=== PATIENT | female | born 1980 | race Caucasian/White ===

== ENCOUNTER 2018-10-31 16:53 | Inpatient (IN) ==
[2018-10-31 18:30] LABS: Baso % (Auto) 0.1 % (0.0-2.0); Eos # (Auto) 0.1 th/mm3 (0.0-0.4); Eos % (Auto) 1.1 % (0.0-4.0); Hemoglobin 13.7 gm/dL (11.6-15.3); Lymph # (Auto) 1.4 th/mm3 (1.0-4.8); Lymph % (Auto) 17.6 % (9.0-44.0); Mean Corpuscular HGB Conc 34.3 % (32.0-36.0); Mean Corpuscular Hemoglobin 30.7 pg (27.0-34.0); Mean Corpuscular Volume 89.4 fL (80.0-100.0); Mean Platelet Volume 9.2 fL (7.0-11.0); Mono # (Auto) 0.4 th/mm3 (0.0-0.9); Mono % (Auto) 5.7 % (0.0-8.0); Neut # (Auto) 5.9 th/mm3 (1.8-7.7); Neut % (Auto) 75.5 % (16.0-70.0); Platelet Count 182 th/mm3 (150-450); Red Blood Count 4.47 mil/mm3 (4.00-5.30); Red Cell Distribution Width 13.6 % (11.6-17.2); White Blood Count 7.8 th/mm3 (4.0-11.0)
[2018-10-31] MEDS ORDERED: Penicillin G Potassium Inj 5,000,000 UNIT in Sodium Chloride 0.9% Inj 100 ML IV.SIG ONE (18:46)
[2018-10-31] MEDS ORDERED: Oxytocin 30 Units/500ml Premix 30 UNITS/500 ML BAG IV.SIG ONE (18:46)
[2018-10-31] MEDS ORDERED: Naloxone Inj 0.4 MG/ML Vial IV.PUSH PRN (18:46)
[2018-10-31] MEDS ORDERED: fentaNYL Citrate Inj 100 MCG/2 ML Ampul IV.PUSH PRN ×2 (18:46)
[2018-10-31] MEDS ORDERED: Sodium Chlor 0.9% Inj 500 ML IV.SIG PRN (18:46)
[2018-10-31] MEDS ORDERED: Sod Chloride 0.9% Inj 1,000 ML IV.CONT PRN (18:46)
[2018-10-31] MEDS ORDERED: Citric Acid/Sodium Citrate Liq 30 ML UDC PO SCH (19:00)
[2018-10-31] MEDS ORDERED: Sodium Chloride 0.9% 2 ML Flush PRN IV.FLUSH (19:06)
[2018-10-31] MEDS: Sodium Chloride 0.9% 2 ML Flush BID IV.FLUSH SCH (20:37)
[2018-10-31 20:39] LABS: Amorphous Sediment,Urine Rare /hpf; Bacteria,Urine Rare /hpf; Bilirubin,Urine Negative (Negative); Clarity,Urine Hazy (Clear); Color,Urine Yellow (Yellw/Straw); Glucose,Urine (UA) Negative (Negative); Leukocyte Esterase,Urine Negative (Negative); Mucus,Urine Few /lpf (Occasional); Nitrite,Urine Negative (Negative); Specific Gravity,Urine 1.011 (1.002-1.035); Squamous Epithelial Cell,Urine 4 /hpf (0-5)
--- NOTE | 2018-10-31 20:49 | MH ---
cc: Santana Javier MD DATE OF ADMISSION: 10/31/2018 CHIEF COMPLAINT: The patient admitted for induction of labor, complaint of severe pelvic pain. HISTORY OF PRESENT ILLNESS: The patient is a 38-year-old female, 4, para 2, who conceived by in vitro fertilization 02/19/2018. The patient's estimated date of confinement is 11/07/2018. The patient's course has been relatively unremarkable until recently where she has developed significant pelvic discomfort and inability to ambulate suggesting diastasis pubis. OBSTETRICAL HISTORY: GBS positive, blood type AB positive, STI panel negative. Thyroid normal. Genetic testing using quad screen was normal. The donor egg that was used for the IVF was 22 years of age. The patient's 1-hour Glucola was normal. Status post full term delivery 38 weeks in 2013 of a viable female infant vaginally, 2016 41-week gestation, 8 pound female by vaginal delivery. Patient had a first trimester loss in September 2016 that was spontaneous. The patient has had a blighted ovum in 2012. PAST MEDICAL HISTORY: Breast cancer diagnosed in 2008, bilateral mastectomy. The patient has history of anxiety. ALLERGIES: NO KNOWN DRUG ALLERGIES. 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 Denies use of alcohol, tobacco or illicit substances. MEDICATIONS: Include vitamins daily. FAMILY HISTORY: Noncontributory. PHYSICAL EXAMINATION: GENERAL: This is a well-appearing, well-nourished female, in no acute distress. VITAL SIGNS: Stable. Blood pressure is 112/80. She is afebrile. Pulse and respiratory rate are normal. heart tones are documented in the 140s. HEENT: Shows no adenopathy or thyromegaly. NECK: Supple, full range of motion. Pupils are equally round and reactive to light. LUNGS: Clear in all galeana. CARDIAC: Regular rate and rhythm without murmur, rub or gallop. ABDOMEN: Gravid, full-term, fundal height measures 40 cm. PELVIC: The patient is 60% effaced, 2 cm, -2 station, mid position. EXTREMITIES: Symmetrical, full range of motion. No cyanosis, clubbing or edema. NEUROLOGIC: Grossly intact, nonfocal. ASSESSMENT: The patient is 39 weeks' gestation, documented IVF conception, history of breast cancer, GBS positive with no allergies to antibiotics. History of progressive pelvic pain, suspect diastasis pubis. PLAN OF MANAGEMENT: Induction of labor with Cervidil. Expected management. The patient will receive penicillin per protocol for group B strep status when in active labor. MD IVY Chaudhry/manuel , 07:56 PM , 08:05 PM
[2018-10-31] MEDS ORDERED: Penicillin G Potassium Inj 2,500,000 UNIT in Sodium Chlor 0.9% Inj 100 ML IV.SIG SCH (23:00)
[2018-11-01] MEDS ORDERED: Acetaminophen 325 MG Tablet PO PRN (00:29)
[2018-11-01] MEDS ORDERED: Oxytocin 30 Units/500ml Premix 30 UNITS/500 ML BAG IV.SIG PRN (09:41)
[2018-11-01] MEDS ORDERED: Penicillin G Potassium Inj 5,000,000 UNIT in Sodium Chloride 0.9% Inj 100 ML IV.SIG ONE (10:00)
[2018-11-01] MEDS ORDERED: Penicillin G Potassium Inj 2,500,000 UNIT in Sodium Chlor 0.9% Inj 100 ML IV.SIG SCH (10:00)
[2018-11-01] MEDS: Sodium Chloride 0.9% 2 ML Flush BID IV.FLUSH SCH ×2 (10:02→20:24)
[2018-11-01] MEDS: Penicillin G Potassium Inj 2,500,000 UNIT in Sodium Chlor 0.9% Inj 100 ML IV.SIG SCH ×3 (13:59→22:14)
[2018-11-01] MEDS ORDERED: fentaNYL 2MCG-Bupiv 0.125% Epi 150 ML EPIDURAL ONE (18:31)
[2018-11-01] MEDS ORDERED: fentaNYL 2MCG-Bupiv 0.125% Epi 150 ML EPIDURAL PRN (20:26)
[2018-11-01] MEDS ORDERED: fentaNYL Citrate Inj 100 MCG/2 ML Ampul EPIDURAL ONE (20:26)
[2018-11-02] MEDS ORDERED: Zolpidem Tartrate 5 MG Tablet PO PRN ×2 (00:22→01:57)
[2018-11-02] MEDS ORDERED: Oxytocin 30 Units/500ml Premix 30 UNITS/500 ML BAG IV.CONT PRN ×4 (00:22→01:57)
[2018-11-02] MEDS ORDERED: Benzocaine 20% Top Spray 60 ML Can TOPICAL PRN ×2 (00:22→01:57)
[2018-11-02] MEDS ORDERED: Acetaminophen 325 MG Tablet PO PRN ×4 (00:22→01:57)
[2018-11-02] MEDS ORDERED: Naloxone Inj 0.4 MG/ML Vial IV.PUSH PRN ×3 (00:22→01:05)
[2018-11-02] MEDS ORDERED: Witch Hazel 50%/Glyderin 12.5% 40 Pad Jar RECTAL PRN ×4 (00:22→01:57)
[2018-11-02] MEDS ORDERED: Bisacodyl 10 MG Supp RECTAL PRN ×3 (00:22→01:05)
--- NOTE | 2018-11-02 00:32 | P.OBDELI ---
Patient Started Active Labor: Yes Artificial Rupture of Membrane: No Anesthesia: Epidural Episiotomy: none Vaginal Delivery: Normal Presentation: Occiput anterior Nuchal Cord: x1 Delayed Cord Clamping (45 sec): Yes Placenta: Manual removal Laceration: 1 deg Repair: Chromic running Estimated blood loss (mL): 300 : Female Female A Weight: 2.778 kg score (1 min): 8 score (5 min): 9
[2018-11-02] MEDS ORDERED: Senna/Docusate Sodium 8.6/50 MG Tablet PO PRN (02:04)
--- NOTE | 2018-11-02 08:25 | P.PNOB ---
Subjective Post day: 1 Interval history: Doing well Pain is controlled Baby is good Tolerating diet well Objective Vital Signs/I&O: Vital Signs 11/01/18 10:00 11/01/18 10:30 11/01/18 10:59 Temperature 99.4 F Pulse Rate 77 78 71 Respiratory Rate 18 18 Blood Pressure 115/74 121/70 86/50 L 11/01/18 11:00 11/01/18 11:30 11/01/18 12:00 Temperature Pulse Rate 71 82 81 Respiratory Rate 18 Blood Pressure 119/74 128/72 118/77 11/01/18 12:31 11/01/18 13:00 11/01/18 13:32 Temperature Pulse Rate 78 76 74 Respiratory Rate 18 Blood Pressure 116/77 127/72 104/72 11/01/18 14:00 11/01/18 14:30 11/01/18 14:45 Temperature 97.6 F Pulse Rate 78 77 Respiratory Rate 18 Blood Pressure 118/73 122/78 11/01/18 16:17 11/01/18 16:18 11/01/18 16:47 Temperature Pulse Rate 67 76 Respiratory Rate 18 Blood Pressure 127/60 102/56 L 11/01/18 17:17 11/01/18 17:18 11/01/18 17:50 Temperature Pulse Rate 71 65 Respiratory Rate 18 Blood Pressure 118/71 110/63 11/01/18 18:00 11/01/18 18:01 11/01/18 19:21 Temperature 98.6 F 98.7 F Pulse Rate 76 93 H Respiratory Rate 20 20 Blood Pressure 124/78 152/90 H 11/01/18 19:25 11/01/18 19:28 11/01/18 19:30 Temperature Pulse Rate 88 88 93 H Respiratory Rate Blood Pressure 151/84 H 149/85 H 154/88 H 11/01/18 19:32 11/01/18 19:34 11/01/18 19:35 Temperature Pulse Rate 117 H 106 H 136 H Respiratory Rate Blood Pressure 134/76 141/76 H 123/85 11/01/18 19:40 11/01/18 19:42 11/01/18 19:45 Temperature Pulse Rate 124 H 104 H 63 Respiratory Rate Blood Pressure 95/36 L 97/46 L 11/01/18 19:48 11/01/18 19:50 11/01/18 19:51 Temperature Pulse Rate 69 69 66 Respiratory Rate Blood Pressure 112/43 L 111/64 11/01/18 19:55 11/01/18 19:56 11/01/18 19:57 Temperature Pulse Rate 70 98 H 86 Respiratory Rate Blood Pressure 100/44 L 117/74 11/01/18 20:10 11/01/18 20:15 11/01/18 20:20 Temperature Pulse Rate 90 72 75 Respiratory Rate Blood Pressure 125/99 H 11/01/18 20:25 11/01/18 20:30 11/01/18 20:35 Temperature Pulse Rate 66 74 75 Respiratory Rate Blood Pressure 110/65 100/72 11/01/18 20:40 11/01/18 20:48 11/01/18 20:50 Temperature 97.9 F Pulse Rate 69 74 Respiratory Rate 18 Blood Pressure 107/50 L 11/01/18 20:55 11/01/18 21:00 11/01/18 21:05 Temperature Pulse Rate 70 73 72 Respiratory Rate Blood Pressure 106/54 L 11/01/18 21:10 11/01/18 21:15 11/01/18 21:20 Temperature Pulse Rate 68 68 86 Respiratory Rate Blood Pressure 11/01/18 21:25 11/01/18 21:30 11/01/18 21:31 Temperature Pulse Rate 67 65 78 Respiratory Rate Blood Pressure 111/54 L 11/01/18 21:35 11/01/18 21:40 11/01/18 21:45 Temperature Pulse Rate 72 67 68 Respiratory Rate Blood Pressure 11/01/18 21:50 11/01/18 21:55 11/01/18 22:00 Temperature Pulse Rate 67 64 73 Respiratory Rate Blood Pressure 11/01/18 22:05 11/01/18 22:10 11/01/18 22:20 Temperature Pulse Rate 78 76 81 Respiratory Rate Blood Pressure 11/01/18 22:25 11/01/18 22:30 11/01/18 22:31 Temperature Pulse Rate 75 83 85 Respiratory Rate Blood Pressure 11/01/18 22:35 11/01/18 22:40 11/01/18 22:41 Temperature 98.1 F Pulse Rate 87 100 H Respiratory Rate Blood Pressure 11/01/18 22:45 11/01/18 22:46 11/01/18 22:50 Temperature Pulse Rate 91 H 83 82 Respiratory Rate Blood Pressure 110/68 12/20/18 22:55 11/01/18 23:00 11/01/18 23:05 Temperature Pulse Rate 84 77 85 Respiratory Rate Blood Pressure 131/70 110/58 L 11/01/18 23:31 11/01/18 23:34 11/01/18 23:45 Temperature 98.0 F Pulse Rate 83 90 Respiratory Rate 18 Blood Pressure 124/64 11/01/18 23:54 11/02/18 00:00 11/02/18 00:15 Temperature Pulse Rate 84 86 78 Respiratory Rate 18 18 Blood Pressure 115/65 115/61 124/67 11/02/18 00:30 11/02/18 00:31 11/02/18 01:45 Temperature 97.6 F Pulse Rate 76 66 Respiratory Rate 18 18 Blood Pressure 120/64 118/72 11/02/18 02:30 11/02/18 03:30 Temperature Pulse Rate Respiratory Rate 16 16 Blood Pressure Intake & Output 11/01/18 11/02/18 11/02/18 18:59 06:59 18:59 Intake Total 200 / 200 1100 / 1100 Balance 200 / 200 1100 / 1100 Intake: IV 200 / 200 1100 / 1100 LR 1000 mL Inj 1,000 ML @ 125 1000 / 1000 mls/hr IV.CONT .Q8H [facility] Rx#: [id number] Pfizerpen-G Inj 2,500,000 UNIT 200 / 200 100 / 100 In NS Inj 100 ML @ 200 mls/hr IV.SIG Q4H [facility] Rx#:[id number] Result Diagrams: 10/31/18 17:30 Objective Remarks: GENERAL: Well-nourished, well-developed patient. CARDIOVASCULAR: Regular rate and rhythm without murmurs, gallops, or rubs. RESPIRATORY: Breath sounds equal bilaterally. No accessory muscle use. ABDOMEN/GI: Abdomen soft, non-tender. Fundus: Firm, non-tender at umbilicus. GENITOURINARY: Light to moderate bleeding. EXTREMITIES: No cyanosis or edema, non-tender, without signs of DVT. Medications and IVs: Active Medications Acetaminophen (Tylenol) 650 mg PO Q4H PRN PRN Reason: PAIN SCALE 1 TO 2 Benzocaine (Americaine 20% [place]) 1 spray TOPICAL Q4H PRN PRN Reason: For Perineum Discomfort Diphtheria/Pertussis/Tetanus Vacc (Boostrix Vaccine Inj) 0.5 ml IM .ONCE ONE Stop: 11/02/18 16:01 Oxytocin (Pitocin 30 Units/Ns 500 Ml Premix) 30 units in 500 mls @ 100 mls/hr IV.CONT UNSCH PRN PRN Reason: Heavy bleeding Ibuprofen (Motrin) 800 mg PO Q8H PRN PRN Reason: For Cramping Last Admin: 11/02/18 00:35 Dose: 800 mg Measles/Mumps/Rubella Vaccine Live (M-M-R Ii Vaccine Inj) 0.5 ml SQ .ONCE ONE Stop: 11/02/18 16:01 Ondansetron HCl (Zofran Odt) 4 mg PO Q6H PRN PRN Reason: NAUSEA OR VOMITING Senna/Docusate Sodium (Sandra-Colace) 2 tab PO Q12H PRN PRN Reason: CONSTIPATION Sodium Chloride (Ns Flush) 2 ml IV.FLUSH BID BEN Sodium Chloride (Ns Flush) 2 ml IV.FLUSH PRN PRN PRN Reason: FLUSH AFTER USING IV ACCESS Witch Tammie/Glycerin (Tucks Pads) 1 applicatio RECTAL QID PRN PRN Reason: HEMORRHOIDS Zolpidem Tartrate (Ambien) 5 mg PO HS PRN PRN Reason: SLEEP Assessment and Plan - Plan PPD #1 Doing well H/O breast cancer and had a mastectomy Home soon
[2018-11-02] MEDS ORDERED: Senna/Docusate Sodium 8.6/50 MG Tablet PO SCH ×3 (09:00)
[2018-11-02] MEDS ORDERED: Measles/Mumps/Rubella Vaccine Inj 0.5 ML Vial SQ ONE ×2 (16:00)
[2018-11-02] MEDS ORDERED: Diphtheria/Tetanus/Pertussis Vaccine Inj 0.5 ML Syringe IM ONE ×2 (16:00)
--- NOTE | 2018-11-03 14:13 | P.OBGPN ---
Doing well Ready to go home Baby is in the NICU and has a problem with the nose and breathing.. They need a peds ent consultation. This is a miracle baby she was not supposed to get pg after chemo for breast ca Home now.
== END 2018-11-03 16:00 | disposition home or self-care (01) ==
LOC: H2E 16:53 → H1EA 11-02 01:45
PROVIDERS: ADMIT Obstetrics & Gynecology; ATTEND Obstetrics & Gynecology